=== PATIENT | male | born 1970 | race Caucasian/White ===

== ENCOUNTER 2018-11-29 05:52 | Day surgery (SDC) | payer MEDICARE, BC ==
[2018-11-29] MEDS ORDERED: FENTANYL PF 100MCG/2ML VIAL IV ONE (05:53)
[2018-11-29] MEDS ORDERED: PROPOFOL 10 MG/ML VIAL IV ONE (05:53)
[2018-11-29] MEDS ORDERED: LIDOCAINE 2% MDV (20MG/ML) 20ML VIAL IV ONE (05:53)
[2018-11-29] MEDS ORDERED: MIDAZOLAM HCL 2MG/2ML VIAL IV ONE (05:53)
[2018-11-29] MEDS ORDERED: RINGERS SOLUTION,LACTATED 1,000 ML IV ONE (06:30)
[2018-11-29] MEDS ORDERED: LIDOCAINE 1% W/EPI 1:100,000 MDV 20 ML VIAL SQ ONE (07:53)
[2018-11-29] MEDS ORDERED: BUPIVACAINE 0.5% W/EPI MPF 30 ML VIAL SQ ONE (07:53)
[2018-11-29] MEDS ORDERED: DEXAMETHASONE PRESERVATIVE FREE 10MG/ML VIAL SQ ONE (07:54)
[2018-11-29] MEDS ORDERED: HYDROCODONE/APAP 7.5/325MG TABLET PO ONE (08:34)
--- NOTE | 2018-11-30 11:11 | Operative Note ---
DATE OF SURGERY: 11/29/2018 PREOPERATIVE DIAGNOSIS: Cervical spondylosis without myelopathy, ICD10 code M47.812. OPERATION: Radiofrequency rhizotomy of bilateral cervical facets 4-5, 5-6, and 6-7. INDICATIONS: This patient presents with primary neck pain. Examination showed tenderness of the cervical spine. Range of motion does cause pain to the neck with extension. Diagnostics show significant spurring, end plate changes, disc degeneration. A facet series 75% pain control. Due to the failure of therapy, success of facet series, he patient presents for rhizotomy for more chcf relief. ANESTHESIA: Local sedation. ANESTHESIA PROVIDER: Carlos Alberto Acharya PROCEDURE: Intravenous line, vital sign monitoring, IV sedation, prepped and draped in sterile technique. Patient positioned prone. Under imaging, cervical facets at 4-5, 5-6, and 6-7 were identified and marked bilaterally. Skin infiltrated. A 22-gauge rhizotomy cannula positioned. Stimulation trial was conducted. Rhizotomy burn performed. Local with antiinflammatory into the site. Topical antibiotic and sterile dressing applied. Will monitor and evaluate. CC: Dr. Nathaniel DELGADILLO
== END 2018-11-29 08:52 | disposition home or self-care (01) ==
LOC: SUR 05:52
PROVIDERS: ATTEND Pain Medicine Interventional Pain Medicine
DX: M47.812 Spondylosis without myelopathy or radiculopathy, cervical region (principal); I10 Essential (primary) hypertension; K21.9 Gastro-esophageal reflux disease without esophagitis
CPT/HCPCS: 64633; 64634 ×2; 01936; J1100; J3010; J7120